=== PATIENT | male | born 1990 | race African-American/Black ===

== ENCOUNTER 2016-05-18 11:27 | Emergency (ER) | payer SELFPAY ==
[2016-05-18 11:43] VITALS: BP 124/65
--- NOTE | 2016-05-18 11:47 | ER Document Report ---
ED Medical Screen (RME) - General Stated Complaint: LEG PAIN Notes: onset: 3 weeks ago admits to right leg pain, with certain movement he'll have a sharp shooting pain down the front of his thigh no injury fully ambulatory, able to bear weight TRAVEL OUTSIDE OF THE [place] IN LAST 30 DAYS: No - Related Data Allergies/Adverse Reactions: No Known Allergies Allergy (Verified 05/18/16 11:43) Past Medical History Musculoskeltal Medical History: Reports Hx Musculoskeletal Trauma Past Surgical History: Reports: Hx Orthopedic Surgery - left knee - Immunizations Hx Diphtheria, Pertussis, Tetanus Vaccination: Yes Physical Exam - Vital signs Vitals: Temp Pulse Resp BP Pulse Ox 98.0 F 111 H 16 124/65 96 05/18/16 11:42 05/18/16 11:42 05/18/16 11:42 05/18/16 11:42 05/18/16 11:42 Course - Vital Signs Vital signs: Temp Pulse Resp BP Pulse Ox 98.0 F 111 H 16 124/65 96 05/18/16 11:42 05/18/16 11:42 05/18/16 11:42 05/18/16 11:42 05/18/16 11:42
--- NOTE | 2016-05-18 12:07 | ER Document Report ---
Addendum entered and electronically signed by RUMA SHEFFIELD FNP 11:35: Discharge Diagnosis (1) Muscle strain of right lower extremity Code(s): S86.911A - STRAIN OF UNSP MUSC/TEND AT LOWER LEG LEVEL, RIGHT LEG, INIT Original Note: ED General - General Chief Complaint: Groin Pain Stated Complaint: LEG PAIN Information source: Patient TRAVEL OUTSIDE OF THE [place] IN LAST 30 DAYS: No - HPI Onset: Other - This 25-year-old male who is been having some discomfort in his right medial thigh since approximately 2 days before [place] he feels more discomfort when he is leaning on a counter trying to pick something up. - Related Data Allergies/Adverse Reactions: No Known Allergies Allergy (Verified 05/18/16 11:43) Past Medical History - General Information source: Patient - Social History Smoking Status: Current Every Day Smoker Chew tobacco use (# tins/day): No Frequency of alcohol use: None Drug Abuse: Marijuana Family History: Reviewed & Not Pertinent Patient has suicidal ideation: No Patient has homicidal ideation: No Renal/ Medical History: Denies: Hx Peritoneal Dialysis Musculoskeltal Medical History: Reports Hx Musculoskeletal Trauma Past Surgical History: Reports: Hx Orthopedic Surgery - left knee - Immunizations Hx Diphtheria, Pertussis, Tetanus Vaccination: Yes Review of Systems - Review of Systems Constitutional: No symptoms reported EENT: No symptoms reported Cardiovascular: No symptoms reported Respiratory: No symptoms reported Gastrointestinal: No symptoms reported Genitourinary: No symptoms reported Male Genitourinary: No symptoms reported Musculoskeletal: Other - Right medial groin tenderness on exertion distal to the scrotal area no herniation palpated on appropriate exam. Again discomfort is approximately 3 inches distal to the scrotum on the right. Skin: No symptoms reported Hematologic/Lymphatic: No symptoms reported Neurological/Psychological: No symptoms reported Physical Exam - Vital signs Vitals: Temp Pulse Resp BP Pulse Ox 98.0 F 111 H 16 124/65 96 05/18/16 11:42 05/18/16 11:42 05/18/16 11:42 05/18/16 11:42 05/18/16 11:42 Interpretation: Normal - General General appearance: Appears well, Alert - HEENT Head: Normocephalic, Atraumatic Eyes: Normal Pupils: PERRL - Respiratory Respiratory status: No respiratory distress Chest status: Nontender Breath sounds: Normal Chest palpation: Normal - Cardiovascular Rhythm: Regular Heart sounds: Normal auscultation Murmur: No - Abdominal Inspection: Normal Distension: No distension Bowel sounds: Normal Tenderness: Nontender Organomegaly: No organomegaly - Back Back: Normal, Nontender - Extremities General upper extremity: Normal inspection, Nontender, Normal color, Normal ROM , Normal temperature General lower extremity: Normal inspection, Nontender, Normal color, Normal ROM , Normal temperature, Normal weight bearing. No: Hui's sign Thigh: Other - Right medial groin tenderness on exertion distal to the scrotal area no herniation palpated on appropriate exam. Again discomfort is approximately 3 inches distal to the scrotum on the right - Neurological Neuro grossly intact: Yes Cognition: Normal Orientation: AAOx4 Yessi Coma Scale Eye Opening: Spontaneous Yessi Coma Scale Verbal: Oriented [place] Coma Scale Motor: Obeys Commands Yessi Coma Scale Total: 15 Speech: Normal Motor strength normal: LUE, RUE, LLE, RLE Sensory: Normal - Psychological Associated symptoms: Normal affect, Normal mood - Skin Skin Temperature: Warm Skin Moisture: Dry Skin Color: Normal Course - Vital Signs Vital signs: Temp Pulse Resp BP Pulse Ox 98.0 F 111 H 16 124/65 96 05/18/16 11:42 05/18/16 11:42 05/18/16 11:42 05/18/16 11:42 05/18/16 11:42 Discharge - Discharge Clinical Impression: Muscle strain of right lower extremity Disposition: HOME, SELF-CARE Additional Instructions: Muscle Strain You have strained a muscle -- torn the fibers within the muscle. This often occurs with strenuous exertion, or during an injury that suddenly stretches the muscle. The seriousness of a strain varies. Some strains heal within days, others cause problems for months. X-rays cannot show a muscle strain. X-rays are taken only if symptoms suggest that a fracture could be present. The usual treatment of a muscle strain is rest and ice packs. Sometimes, a sling, splint, or crutches may be necessary to rest the muscle. The muscle can be used again once pain subsides. Severe strains require a special exercise and stretching program to prevent permanent stiffness and disability. Your doctor will advise you if this will be necessary. Call the doctor immediately if pain or swelling becomes severe, or if numbness or discoloration develop. Follow-up with private doctor in 1 to 2 days for final radiology readings please return to the emergency room for any change worsening condition. Follow up with private M.D. for all other routine health care needs. Prescriptions: Tramadol HCl [Ultram 50 mg Tablet] 50 mg PO Q6HP PRN #40 tablet PRN Reason: Naproxen Sodium [Naproxen Sodium ER] 500 mg PO Q12 PRN #20 tablet.sa PRN Reason:
== END 2016-05-18 12:24 | disposition home or self-care (01) ==
LOC: ER 11:27
DX: S86.911A Strain of unspecified muscle(s) and tendon(s) at lower leg level, right leg, initial encounter (principal); X58.XXXA Exposure to other specified factors, initial encounter; F17.200 Nicotine dependence, unspecified, uncomplicated; Z98.890 Other specified postprocedural states
CPT/HCPCS: 99283

== ENCOUNTER 2016-09-05 12:18 | Emergency (ER) | payer SELFPAY ==
[2016-09-05] MEDS ORDERED: DIPH/PERTUSS(ACELL)/TETANUS VAC/PF 0.5 ML SYR (>=10YO) IM ONE (13:19)
[2016-09-05] MEDS ORDERED: HYDROCODONE/ACETAMINOPHEN 5-325 MG TABLET PO ONE (13:19)
[2016-09-05] MEDS ORDERED: AMOXICILLIN TRIHYD 250 MG CAPSULE PO ONE (13:20)
[2016-09-05] MEDS ORDERED: AMOXICILLIN TR/POT CLAVULANATE 500-125 MG TAB PO ONE (13:20)
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
[2016-09-05 15:33] VITALS: BP 130/77
== END 2016-09-05 15:31 | disposition home or self-care (01) ==
LOC: ER 12:18
DX: S29.012A Strain of muscle and tendon of back wall of thorax, initial encounter (principal); S16.1XXA Strain of muscle, fascia and tendon at neck level, initial encounter; Y04.8XXA Assault by other bodily force, initial encounter; Y93.89 Activity, other specified; S20.472A Other superficial bite of left back wall of thorax, initial encounter; Y04.1XXA Assault by human bite, initial encounter; F17.200 Nicotine dependence, unspecified, uncomplicated
CPT/HCPCS: 99283; 90471; 71020; 90715; J3490

== ENCOUNTER 2017-01-07 11:11 | Emergency (ER) | payer SELFPAY ==
[2017-01-07] MEDS ORDERED: CYCLOBENZAPRINE HCL 10 MG TABLET PO ONE (12:06)
[2017-01-07] MEDS ORDERED: ACETAMINOPHEN 325 MG TABLET PO ONE (12:06)
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
[2017-01-07 13:29] VITALS: BP 125/75
== END 2017-01-07 13:30 | disposition home or self-care (01) ==
LOC: ER 11:11
DX: S16.1XXA Strain of muscle, fascia and tendon at neck level, initial encounter (principal); S20.212A Contusion of left front wall of thorax, initial encounter; S80.02XA Contusion of left knee, initial encounter; M54.9 Dorsalgia, unspecified; R07.81 Pleurodynia; M25.562 Pain in left knee; M54.2 Cervicalgia; V87.7XXA Person injured in collision between other specified motor vehicles (traffic), initial encounter; F17.210 Nicotine dependence, cigarettes, uncomplicated
CPT/HCPCS: 99284

== ENCOUNTER 2017-01-07 18:48 | Emergency (ER) | payer SELFPAY ==
[2017-01-07 19:11] VITALS: BP 136/72
[2017-01-07] MEDS ORDERED: HYDROCODONE/ACETAMINOPHEN 5-325 MG 6 TAB/DSPK PO PRN (19:45)
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
== END 2017-01-07 20:31 | disposition home or self-care (01) ==
LOC: ER 18:48
DX: S80.02XD Contusion of left knee, subsequent encounter (principal); S20.212D Contusion of left front wall of thorax, subsequent encounter; S16.1XXD Strain of muscle, fascia and tendon at neck level, subsequent encounter; M54.9 Dorsalgia, unspecified; M54.2 Cervicalgia; F17.210 Nicotine dependence, cigarettes, uncomplicated; V87.7XXD Person injured in collision between other specified motor vehicles (traffic), subsequent encounter
CPT/HCPCS: 99283

== ENCOUNTER 2017-06-26 13:49 | Emergency (ER) | payer SELFPAY ==
[2017-06-26] MEDS ORDERED: NORMAL SALINE 1000 ML 1,000 ML IV ONE (13:58)
[2017-06-26] MEDS ORDERED: ONDANSETRON HCL INJ/PF 4 MG/2 ML SDV IV ONE (13:58)
--- NOTE | 2017-06-26 14:00 | ER Document Report ---
ED Medical Screen (RME) - General Chief Complaint: Abdominal Pain Stated Complaint: ABDOMINAL PAIN, VOMITING Time Seen by Provider: 06/26/17 13:58 Mode of Arrival: Ambulatory Information source: Patient TRAVEL OUTSIDE OF THE [place] IN LAST 30 DAYS: No - HPI Patient complains to provider of: abd pain Onset: This morning - pt developed generalized abd pain with vomiting times 2 earlier today. Thinks he may have "eaten something bad last night." - Related Data Allergies/Adverse Reactions: naproxen [From Naprosyn] Adverse Reaction (Verified 01/07/17 19:05) tramadol Adverse Reaction (Verified 01/07/17 19:05) Nausea Past Medical History Renal/ Medical History: Denies: Hx Peritoneal Dialysis Musculoskeltal Medical History: Reports Hx Musculoskeletal Trauma Traumatic Medical History: Reports: Hx Fractures - Left knee Past Surgical History: Reports: Hx Orthopedic Surgery - left knee, Other - Eye surgery - Immunizations Hx Diphtheria, Pertussis, Tetanus Vaccination: Yes
[2017-06-26 14:49] LABS: APPEARANCE,URINE CLEAR; BILIRUBIN,URINE NEGATIVE (NEGATIVE); COLOR,URINE YELLOW; GLUCOSE, URINE NEGATIVE (NEGATIVE); KETONES,URINE NEGATIVE (NEGATIVE); LEUKOCYTE ESTERASE,URINE TRACE (NEGATIVE); NITRITE,URINE NEGATIVE (NEGATIVE); PROTEIN,URINE NEGATIVE (NEGATIVE); URINE SPECIFIC GRAVITY 1.019; UROBILINOGEN,URINE NEGATIVE mg/dL (<2.0)
--- NOTE | 2017-06-26 15:00 | RADIOLOGY REPORT (SQ) ---
EXAM DESCRIPTION: ACUTE ABDOMEN SERIES COMPLETED DATE/TIME: 06/26/2017 2:47 pm REASON FOR STUDY: abd pain COMPARISON: Two-view chest 09/05/2016 NUMBER OF VIEWS: Three views. TECHNIQUE: Frontal chest, supine abdomen and upright abdomen radiographic images acquired. LIMITATIONS: None. FINDINGS: CHEST: Lungs clear of infiltrates. No pleural effusion no pneumothorax. Cardiac silhouet te size, evy unremarkable. FREE AIR: None. No abnormal gas collections. BOWEL GAS PATTERN: Grossly nonobstructive pattern. There is gas and stool in the colon, air and flui d in nondistended stomach and small bowel loops. CALCIFICATIONS: No suspicious calcifications. HARDWARE: None in the abdomen. SOFT TISSUES: No gross mass or suggestion of organomegaly. BONES: No acute fracture. No worrisome bone lesions. OTHER: No other significant finding. IMPRESSION: Nonspecific nonobstructive bowel gas pattern. No ectopic calcifications. No acute infiltrates TECHNICAL DOCUMENTATION: JOB ID: [id number] [employer]- All Rights Reserved Reading location - IP/workstation name: [email or web address]
[2017-06-26 15:05] LABS: HEMATOCRIT 45.2 % (37.9-51.0); HEMOGLOBIN 15.1 g/dL (13.5-17.0); MEAN CORPUSCULAR HEMOGLOBIN 28.9 pg (27.0-33.4); MEAN CORPUSCULAR HGB CONC 33.4 g/dL (32.0-36.0); MEAN CORPUSCULAR VOLUME 87 fl (80-97); PLATELET COUNT 293 10^3/uL (150-450); RED BLOOD COUNT 5.22 10^6/uL (4.35-5.55); RED CELL DISTRIBUTION WIDTH 14.4 % (11.5-14.0); WHITE BLOOD COUNT 10.2 10^3/uL (4.0-10.5)
--- NOTE | 2017-06-26 15:12 | ER Document Report ---
ED GI/ - General Chief Complaint: Abdominal Pain Stated Complaint: ABDOMINAL PAIN, VOMITING Time Seen by Provider: 06/26/17 13:58 Mode of Arrival: Ambulatory Information source: Patient Notes: 27-year-old male who presents today with the onset this morning of some epigastric discomfort followed by 5 bouts of nonbloody nonbilious vomiting. He states his daughter recently had a similar illness 3 days ago. He denies any fevers or lower abdominal pain. He denies any dysuria or diarrhea. Patient states that the pain is intermittent without radiation. He denies any recent antibiotics, camping, trips or travel. TRAVEL OUTSIDE OF THE [place] IN LAST 30 DAYS: No - HPI Patient complains to provider of: Abdominal pain Onset: Other - See above Timing/Duration: Intermittent Quality of pain: Achy Severity at maximum: Moderate Severity in ED: Mild Pain Level: 1 Location: Other - See above Sexual history: Active Associated symptoms: Other - See above Exacerbated by: Denies Relieved by: Denies Similar symptoms previously: No Recently seen / treated by doctor: No - Related Data Allergies/Adverse Reactions: naproxen [From Naprosyn] Adverse Reaction (Verified 01/07/17 19:05) tramadol Adverse Reaction (Verified 01/07/17 19:05) Nausea Past Medical History - General Information source: Patient - Social History Smoking Status: Current Every Day Smoker Cigarette use (# per day): No Chew tobacco use (# tins/day): No Smoking Education Provided: No Frequency of alcohol use: None Family History: Arthritis, DM, Hyperlipidemia, Hypertension Patient has suicidal ideation: No Patient has homicidal ideation: No Renal/ Medical History: Denies: Hx Peritoneal Dialysis Musculoskeltal Medical History: Reports Hx Musculoskeletal Trauma Traumatic Medical History: Reports: Hx Fractures - Left knee Past Surgical History: Reports: Hx Orthopedic Surgery - left knee, Other - Eye surgery - Immunizations Hx Diphtheria, Pertussis, Tetanus Vaccination: Yes Review of Systems - Review of Systems Constitutional: denies: Fever EENT: denies: Eye discharge, Nose discharge Cardiovascular: denies: Chest pain, Palpitations, Heart racing Respiratory: denies: Short of breath Gastrointestinal: denies: Vomiting Genitourinary: denies: Dysuria Musculoskeletal: denies: Back pain, Leg swelling Skin: Other - no hives. denies: Rash Neurological/Psychological: Other - no slurred speech -: Yes All other systems reviewed and negative Physical Exam - Vital signs Vitals: Temp Pulse Resp BP Pulse Ox 97.7 F 87 20 123/87 H 100 06/26/17 13:49 06/26/17 13:49 06/26/17 13:49 06/26/17 13:49 06/26/17 13:49 Notes: Reviewed vital signs and nursing note as charted by RN. CONSTITUTIONAL: Alert and oriented and responds appropriately to questions. Well -appearing; well-nourished HEAD: Normocephalic; atraumatic EYES: Sclerae non-icteric ENT: Normal nose; no rhinorrhea; moist mucous membranes NECK: Supple without meningismus; non-tender CARD: Regular rate and rhythm; no murmurs RESP: Normal chest excursion without splinting or tachypnea; breath sounds clear and equal bilaterally ABD/GI: Normal bowel sounds; non-distended; soft, non-tender currently to deep palpation of all 4 quadrants of the abdomen BACK: The back appears normal and is non-tender to palpation, there is no CVA tenderness EXT: Normal ROM in all joints; non-tender to palpation; no edema SKIN: No acute lesions noted NEURO: Moves all extremities equally; Motor and sensory function intact PSYCH: The patient's mood and manner are appropriate. Grooming and personal hygiene are appropriate. Course - Re-evaluation Re-evalutation: 06/26/17 15:12 Given the history, physical, we will obtain a lipid panel, lipase, provide fluids, and reassess. Given the daughter with similar symptomatology, pain under the epigastric region, without fevers, a young age, I do believe an acute intra-abdominal surgical infection to be unlikely at this moment. 06/26/17 15:51 Labs as recorded. Patient's pain is improved. Minimal transaminitis. No previous ultrasound of the abdomen. I will perform a right upper quadrant ultrasound of the gallbladder. 06/26/17 17:44 Ultrasound as recorded. Patient has no pain on repeat exam. Patient states he feels much better and would like to go home. - Vital Signs Vital signs: Temp Pulse Resp BP Pulse Ox 97.7 F 87 20 123/87 H 100 06/26/17 13:49 06/26/17 13:49 06/26/17 13:49 06/26/17 13:49 06/26/17 13:49 - Laboratory Result Diagrams: 06/26/17 14:22 06/26/17 14:22 Laboratory results interpreted by me: 06/26/17 06/26/17 06/26/17 14:22 14:22 14:22 RDW 14.4 H Seg Neuts % (Manual) 89 H Lymphocytes % (Manual) 6 L Abs Neuts (Manual) 9.1 H AST 135 H ALT 172 H Ur Leukocyte Esterase TRACE H Discharge - Discharge Clinical Impression: Epigastric discomfort, Transaminitis Vomiting Qualifiers: Vomiting type: unspecified Vomiting Intractability: non-intractable Nausea presence: with nausea Qualified Code(s): R11.2 - Nausea with vomiting, unspecified Condition: Good Disposition: HOME, SELF-CARE Additional Instructions: Come back immediately for any increased pain, change in location or quality of pain, persistent vomiting, fevers, or any other acute problems. Please make sure that you follow-up with the primary care physician regarding your increased liver enzymes as we have discussed.
[2017-06-26 15:22] LABS: ALANINE AMINOTRANSFERASE 172 U/L (21-72); ALBUMIN 4.6 g/dL (3.5-5.0); ALKALINE PHOSPHATASE 94 U/L (38-126); ANION GAP 9 (5-19); ASPARTATE AMINO TRANSFERASE 135 U/L (17-59); BILIRUBIN,DIRECT 0.3 mg/dL (0.0-0.4); BILIRUBIN,TOTAL 0.3 mg/dL (0.2-1.3); BLOOD UREA NITROGEN 9 mg/dL (7-20); CALCIUM 9.7 mg/dL (8.4-10.2); CARBON DIOXIDE 29 mmol/L (22-30); CHLORIDE 107 mmol/L (98-107); GLUCOSE 95 mg/dL (75-110); LIPASE 174.9 U/L (23-300); POTASSIUM 4.8 mmol/L (3.6-5.0); SODIUM 144.5 mmol/L (137-145)
[2017-06-26 15:25] LABS: ABSOLUTE LYMPHOCYTES# (MANUAL) 0.6 10^3/uL (0.5-4.7); ABSOLUTE MONOCYTES # (MANUAL) 0.5 10^3/uL (0.1-1.4); ABSOLUTE NEUTROPHILS# (MANUAL) 9.1 10^3/uL (1.7-8.2); BASOPHILS % (MANUAL) 0 % (0-2); EOSINOPHILS % (MANUAL) 0 % (0-6); LYMPHOCYTES % (MANUAL) 6 % (13-45); MONOCYTES % (MANUAL) 5 % (3-13); SEGMENTED NEUTROPHILS % (MAN) 89 % (42-78); TOTAL CELLS COUNTED 100
[2017-06-26 15:26] LABS: HYPOCHROMASIA SLIGHT; PLATELET COMMENT ADEQUATE
--- NOTE | 2017-06-26 17:28 | RADIOLOGY REPORT (SQ) ---
EXAM DESCRIPTION: U/S ABDOMEN LIMITED W/O DOP COMPLETED DATE/TIME: 06/26/2017 5:16 pm REASON FOR STUDY: 5, epigastric pain COMPARISON: Three-way abdomen series [id number] TECHNIQUE: Dynamic and static grayscale images acquired of the abdomen and recorded on PACS. Reynoldo shashi selected color Doppler and spectral images recorded. LIMITATIONS: None. FINDINGS: PANCREAS: Midline pancreas unremarkable. LIVER: No masses. Echotexture normal. LIVER VASCULATURE: Normal directional flow of the main portal vein and hepatic veins. GALLBLADDER: No stones. Normal wall thickness. No pericholecystic fluid. ULTRASOUND-DETECTED PARIS'S SIGN: Negative. INTRAHEPATIC DUCTS AND COMMON DUCT: CBD and intrahepatic ducts normal caliber. No filling defects. INFERIOR VENA CAVA: Normal flow. AORTA: No aneurysm. RIGHT KIDNEY: Normal size. Normal echogenicity. No solid or suspicious masses. No hydronephrosis. No calcifications. PERITONEAL AND RIGHT PLEURAL SPACE: No ascites or effusions. OTHER: No other significant findings. IMPRESSION: NORMAL RIGHT UPPER QUADRANT ULTRASOUND. TECHNICAL DOCUMENTATION: JOB ID: [id number] [employer]- All Rights Reserved Reading location - IP/workstation name: [email or web address]
[2017-06-26 17:59] VITALS: BP 117/76
== END 2017-06-26 17:59 | disposition home or self-care (01) ==
LOC: ER 13:49
DX: R10.13 Epigastric pain (principal); R74.8 Abnormal levels of other serum enzymes; R11.2 Nausea with vomiting, unspecified; F17.200 Nicotine dependence, unspecified, uncomplicated
CPT/HCPCS: 99284; 96361; 96374; 36415; 83690; 85025; 80053; 81001; 74022; 76705; J2405; J7030

== ENCOUNTER 2017-12-13 17:25 | Emergency (ER) | payer SELFPAY ==
[2017-12-13 17:56] VITALS: BP 100/57
--- NOTE | 2017-12-13 18:09 | RADIOLOGY REPORT (SQ) ---
EXAM DESCRIPTION: HAND RIGHT 3 VIEWS COMPLETED DATE/TIME: 12/13/2017 5:59 pm REASON FOR STUDY: Pain s/p injury/ dropped furniture on hand COMPARISON: None. EXAM PARAMETERS: NUMBER OF VIEWS: Three views. TECHNIQUE: AP, lateral and oblique radiographic images acquired of the right hand. LIMITATIONS: None. FINDINGS: MINERALIZATION: Normal. BONES: No acute fracture or dislocation. No worrisome bone lesions. JOINTS: No effusions. SOFT TISSUES: No soft tissue swelling. No foreign body. OTHER: No other significant finding. IMPRESSION: NEGATIVE STUDY OF THE RIGHT HAND. NO RADIOGRAPHIC EVIDENCE OF ACUTE INJURY. TECHNICAL DOCUMENTATION: JOB ID: [id number] [employer]- All Rights Reserved Reading location - IP/workstation name: [email or web address]
--- NOTE | 2017-12-13 18:10 | RADIOLOGY REPORT (SQ) ---
EXAM DESCRIPTION: WRIST RIGHT 3 VIEWS COMPLETED DATE/TIME: 12/13/2017 5:59 pm REASON FOR STUDY: Pain s/p injury/ dropped furniture on hand COMPARISON: None. NUMBER OF VIEWS: Three views. TECHNIQUE: AP, lateral, and oblique radiographic images acquired of the right wrist. LIMITATIONS: None. FINDINGS: MINERALIZATION: Normal. BONES: No acute fracture or dislocation. No worrisome bone lesions. Normal alignment. SOFT TISSUES: No soft tissue swelling. No foreign body. OTHER: No other significant finding. IMPRESSION: NEGATIVE STUDY OF THE RIGHT WRIST. NO RADIOGRAPHIC EVIDENCE OF ACUTE INJURY. TECHNICAL DOCUMENTATION: JOB ID: [id number] [employer]- All Rights Reserved Reading location - IP/workstation name: [email or web address]
[2017-12-13] MEDS ORDERED: HYDROCODONE/ACETAMINOPHEN 5-325 MG (6 TAB/ER DISP) PO PRN (18:29)
--- NOTE | 2017-12-13 18:32 | ER Document Report ---
HPI - HPI Patient complains to provider of: Right hand injury Onset: Yesterday Onset/Duration: Sudden Quality of pain: Achy Pain Level: 4 Context: Patient states that he was lifting furniture yesterday and the other person dropped their side the furniture causing it to fall landing on his hand. Patient complains of right hand pain and swelling. Patient is right-hand dominant. Exacerbated by: Movement Relieved by: Denies Similar symptoms previously: No Recently seen / treated by doctor: No - ROS ROS below otherwise negative: Yes Systems Reviewed and Negative: Yes All other systems reviewed and negative - CONSTITUTIONAL Constitutional: DENIES: Fever, Chills - URINARY Urinary: DENIES: Dysuria, Urgency, Frequency - MUSCULOSKELETAL Musculoskeletal: REPORTS: Extremity pain, Swelling - DERM Skin Color: Normal Skin Problems: None Past Medical History - General Information source: Patient - Social History Smoking Status: Former Smoker Chew tobacco use (# tins/day): No Frequency of alcohol use: None Drug Abuse: None Occupation: Moving and storage Lives with: Family Family History: Arthritis, DM, Hyperlipidemia, Hypertension Patient has suicidal ideation: No Patient has homicidal ideation: No Renal/ Medical History: Denies: Hx Peritoneal Dialysis Musculoskeletal Medical History: Reports Hx Musculoskeletal Trauma Traumatic Medical History: Reports: Hx Fractures - Left knee Past Surgical History: Reports: Hx Orthopedic Surgery - left knee, Other - Eye surgery - Immunizations Hx Diphtheria, Pertussis, Tetanus Vaccination: Yes Vertical Provider Document - CONSTITUTIONAL Agree With Documented VS: Yes Exam Limitations: No Limitations General Appearance: WD/WN, No Apparent Distress - INFECTION CONTROL TRAVEL OUTSIDE OF THE [place] IN LAST 30 DAYS: No - HEENT HEENT: Atraumatic, Normocephalic - NECK Neck: Normal Inspection, Supple - RESPIRATORY Respiratory: Breath Sounds Normal, No Respiratory Distress - CARDIOVASCULAR Cardiovascular: Regular Rate, Regular Rhythm Pulses: Normal: Radial - MUSCULOSKELETAL/EXTREMETIES Musculoskeletal/Extremeties: MAEW, Tender - Right wrist tenderness over distal radius, right hand tenderness over right first second third metacarpals, Edema - 2+ edema to right hand Notes: No tendon deficit - NEURO Level of Consciousness: Awake, Alert, Appropriate Motor/Sensory: No Motor Deficit, No Sensory Deficit - DERM Integumentary: Warm, Dry Course - Vital Signs Vital signs: Temp Pulse Resp BP Pulse Ox 98.7 F 18 100/57 L 80 L 12/13/17 17:53 08/13/18 17:53 12/13/17 17:53 12/13/17 17:53 - Diagnostic Test Radiology reviewed: Image reviewed, Reports reviewed Procedures - Immobilization Right Wrist Pre-Proc Neuro Vasc Exam: Normal Immobilizer type: Cock-up Performed by: PCT Post-Proc Neuro Vasc Exam: Normal Alignment checked and good: Yes Discharge - Discharge Clinical Impression: Right wrist sprain Qualifiers: Encounter type: initial encounter Qualified Code(s): S63.501A - Unspecified sprain of right wrist, initial encounter Hand sprain Qualifiers: Encounter type: initial encounter Laterality: right Qualified Code(s): S63.91XA - Sprain of unspecified part of right wrist and hand, initial encounter Condition: Stable Disposition: HOME, SELF-CARE Instructions: Ice & Elevation ([facility]), Sprain ([facility]), Temporary Splint ([facility]) Additional Instructions: Return immediately for any new or worsening symptoms Followup with your primary care provider, call tomorrow to make a followup appointment Wear splint for the next 4 days and then remove. If still having pain follow- up with orthopedics Forms: Return to Work Referrals: [facility] ([facility]) [Provider Group] - Follow up as needed
== END 2017-12-13 18:55 | disposition home or self-care (01) ==
LOC: ER 17:25
DX: S63.501A Unspecified sprain of right wrist, initial encounter (principal); S63.91XA Sprain of unspecified part of right wrist and hand, initial encounter; W20.8XXA Other cause of strike by thrown, projected or falling object, initial encounter; Y93.89 Activity, other specified; Z87.891 Personal history of nicotine dependence
CPT/HCPCS: 99283; 73130; 73110; L3908